=== PATIENT | male | born 1995 | race Caucasian/White ===

== ENCOUNTER 2017-02-01 00:51 | Emergency (ER) | payer BC ==
[~2017-02-01] VITALS: Ht 180.3 cm; Wt 80.3 kg
[2017-02-01 00:58] VITALS: TEMP 37; Ht 180.3 cm; Wt 80.3 kg
[2017-02-01] MEDS ORDERED: ONDANSETRON INJ 2 MG/ML 2 ML VIAL IV STA (00:59)
[2017-02-01] MEDS ORDERED: SODIUM CHLORIDE 0.9% 1000ML 1,000 ML IV STA (00:59)
[2017-02-01] MEDS ORDERED: DIPHTHERIA/TETANUS/PERTUSSIS 0.5 ML SYR/VIAL IM. ONE (01:00)
[2017-02-01] MEDS ORDERED: LIDOCAINE/EPINEPHRINE 1% 20 ML VIAL INFIL ONE (01:00)
[2017-02-01 01:05] VITALS: O2SAT 99
--- NOTE | 2017-02-01 01:08 | EMERGENCY ROOM VISIT NOTE ---
History Report prepared by Sohail: Nina Milligan Under the Supervision of: Dr. Nawaf Lara M.D. First contact with patient: 00:44 Chief Complaint: FALL Stated Complaint: FALL History of Present Illness The patient is a 21 year old white male with no pertinent past me who presents to the ED with a cc of fall beginning shortly prior to arrival. Per EMS, the patient was about 10-14 feet up climbing a balcony, when he fell backwards and hit a car. Per EMS, the patient his his head. Per EMS, the patient does not remember climbing or falling. The patient states that he is not on blood thinners and denies drug use. Positive head pain. Source of History: patient, EMS Onset: shortly prior to arrival Position: other (global) Quality: other (fall ) Associated Symptoms: + headache Review of Systems See HPI for pertinent positives and negatives. A total of ten systems were reviewed and were otherwise negative. Past Medical & Surgical No pertinent past medical history stated. Family History No pertinent family history stated. Social History Alcohol Use: occasionally Drug Use: none Current/Historical Medications Scheduled [Generic Allergymed], 1 TAB PO BID Allergies Coded Allergies: No Known Allergies (Unverified , 02/01/17) Physical Exam Vital Signs Date Time Temp Pulse Resp B/P (MAP) Pulse Ox O2 Delivery O2 Flow Rate FiO2 02/01/17 04:05 110 24 99/60 95 Room Air 02/01/17 01:45 123 18 110/76 99 Room Air 02/01/17 01:05 99 Room Air 02/01/17 01:03 117 02/01/17 00:58 37.0 125 18 139/81 100 Room Air Physical Exam GENERAL: Awake, alert, slurred speech, intoxicated HENT: Normocephalic. 4-5 cm laceration to right parietal area. Trace bleeding. Patient has no pain to the face, jaw, or C-spine. EYES: Normal conjunctiva. Sclera non-icteric. NECK: Supple. No nuchal rigidity. FROM. RESPIRATORY: CTAB, no rhonchi, wheezing, crackles CARDIAC: RRR, no MRG ABDOMEN: Soft, NTND, BS+ MSK: No chest wall TTP, no LE edema. Patient has no pain to shoulder or clavicle. No chest wall or abdominal tenderness. NEURO: Exam limited. PERRL. CN 2-12 intact with exception of mild dysarthria, 5/ 5 upper and lower extremity strength, no dysmetria, positive drift, good finger to nose, no sensory deficits. SKIN: No rash or jaundice noted. Medical Decision & Procedures ER Provider Diagnostic Interpretation: Pelvic X-Ray: Bony contours appear intact. SI joints and sacral ala are intact. Pubic symphysis does not appear widened. No obvious femur fracture noted. Chest X-Ray: Trachea is midline. Costophrenic angles are well demarcated. No deep sulcus present. No air under diaphragm. No pneumothorax or pleural effusion. No cardiomegaly. Mediastinum is not widened. No obvious bony deformities. Radiology results as stated below per my review and statrad. CT HEAD: No evidence of acute intracranial abnormality or skull fracture. Mild paranasal sinus mucosal thickening. No fluid levels. Mastoid are cells are clear. Right parietal scalp swelling, laceration. CT C SPINE: No fracture or malalignment. Laboratory Results 02/01/17 01:00 Red Blood Count 4.94, Mean Corpuscular Volume 88.3, Mean Corpuscular Hemoglobin 30.8, Mean Corpuscular Hemoglobin Concent 34.9, Mean Platelet Volume 9.7 02/01/17 01:00 Test 02/01/17 01:00 02/01/17 02:10 White Blood Count 10.07 K/uL (4.8-10.8) Red Blood Count 4.94 M/uL (4.7-6.1) Hemoglobin 15.2 g/dL (14.0-18.0) Hematocrit 43.6 % (42-52) Mean Corpuscular Volume 88.3 fL (80-100) Mean Corpuscular Hemoglobin 30.8 pg (25-34) Mean Corpuscular Hemoglobin Concent 34.9 g/dl (32-36) Platelet Count 217 K/uL (130-400) Mean Platelet Volume 9.7 fL (7.4-10.4) RDW Standard Deviation 39.4 fL (36.4-46.3) RDW Coefficient of Variation 12.4 % (11.5-14.5) Neutrophils % (Manual) 30.4 % Lymphocytes % (Manual) 25.2 % Variant Lymphocytes % (manual) 33.0 % Monocytes % (Manual) 6.1 % Eosinophils % (Manual) 3.5 % Basophils % (Manual) 0.9 % (0-2) Myelocytes % 0.9 % Neutrophils # (Manual) 3.06 K/uL (1.4-6.5) Total Absolute Neutrophils 3.06 K/uL (1.4-6.5) Lymphocytes # (Manual) 2.54 K/uL (1.2-3.4) Absolute Variant Lymphocytes 3.32 K/uL Total Absolute Lymphocytes 5.86 K/uL (1.2-3.4) Monocytes # (Manual) 0.61 K/uL (0.11-0.59) Eosinophils # (Manual) 0.35 K/uL (0-0.5) Basophils # (Manual) 0.09 K/uL (0-0.2) Myelocytes # 0.09 K/uL (0-0) Red Blood Cell Morphology Unremarkable Prothrombin Time 10.0 SECONDS (9.0-12.0) Prothromb Time International Ratio 0.9 (0.9-1.1) Activated Partial Thromboplast Time 23.5 SECONDS (21.0-31.0) Partial Thromboplastin Ratio 0.9 Anion Gap 11.0 mmol/L (3-11) Est Creatinine Clear Calc Drug Dose 127.2 ml/min Estimated GFR () 127.9 Estimated GFR (Non- 110.4 BUN/Creatinine Ratio 11.5 (10-20) Calcium Level 8.4 mg/dl (8.5-10.1) Total Bilirubin 0.3 mg/dl (0.2-1) Direct Bilirubin < 0.1 mg/dl (0-0.2) Aspartate Amino Transf (AST/SGOT) 15 U/L (15-37) Alanine Aminotransferase (ALT/SGPT) 21 U/L (12-78) Alkaline Phosphatase 50 U/L (45-117) Total Protein 7.7 gm/dl (6.4-8.2) Albumin 4.1 gm/dl (3.4-5.0) Ethyl Alcohol mg/dL 287.0 mg/dl (0-3) Urine Color YELLOW Urine Appearance CLEAR (CLEAR) Urine pH 5.5 (4.5-7.5) Urine Specific Lafferty 1.011 (1.000-1.030) Urine Protein NEG (NEG) Urine Glucose (UA) NEG (NEG) Urine Ketones NEG (NEG) Urine Occult Blood TRACE (NEG) Urine Nitrite NEG (NEG) Urine Bilirubin NEG (NEG) Urine Urobilinogen NEG (NEG) Urine Leukocyte Esterase NEG (NEG) Urine WBC (Auto) 0 /hpf (0-5) Urine RBC (Auto) 0-4 /hpf (0-4) Urine Hyaline Casts (Auto) 0 /lpf (0-5) Urine Epithelial Cells (Auto) 0-5 /lpf (0-5) Urine Bacteria (Auto) NEG (NEG) Laboratory results reviewed by me Medications Administered Medications (Trade) Dose Ordered Sig/Rocio Route Start Time Stop Time Status Last Admin Dose Admin Sodium Chloride 1,000 ml @ 999 mls/hr Q1H1M STAT IV 02/01/17 00:59 02/01/17 01:59 DC 02/01/17 01:41 999 MLS/HR Lidocaine/ Epinephrine (Xylocaine/Epine 1% Inj) 20 ml NOW ONCE INFIL 02/01/17 01:00 02/01/17 01:02 DC 02/01/17 01:38 20 ML Lorazepam (Ativan Inj) 1 mg NOW STAT IV 02/01/17 01:18 02/01/17 01:19 DC 02/01/17 01:23 1 MG Procedure Location: over right parietal area Total length: 2 cm Complexity: simple Verbal consent was obtained after the risks and benefits were explained, including but not limited to bleeding, scarring, infection, pain, and bone/joint /nerve damage. At this time, the risks of the procedure are less than the risks of NOT performing the procedure. A time out was taken and the correct patient and site identified. The skin was prepped with betadine. The target area was anesthetized with 4 ml of 1% lidocaine without epinephrine. Copious irrigation was performed using saline. The skin was re-prepped with betadine and a sterile field set. The wound was explored for foreign bodies and none found. Examination revealed no injury to deep structures such as tendons, bone, or significant blood vessels. Debridement was not performed. The wound edges were approximated using 4-0 simple interrupted nylon sutures. Hemostasis and excellent approximation was achieved. Antibacterial ointment and a sterile dressing applied. Detailed wound care instructions and signs and symptoms of infection reviewed with the patient. No complications and the patient tolerated the procedure well. Location: over right parietal area Total length: 3 cm Complexity: simple Verbal consent was obtained after the risks and benefits were explained, including but not limited to bleeding, scarring, infection, pain, and bone/joint /nerve damage. At this time, the risks of the procedure are less than the risks of NOT performing the procedure. A time out was taken and the correct patient and site identified. The skin was prepped with betadine. The target area was anesthetized with 4 ml of 1% lidocaine without epinephrine. Copious irrigation was performed using saline. The skin was re-prepped with betadine and a sterile field set. The wound was explored for foreign bodies and none found. Examination revealed no injury to deep structures such as tendons, bone, or significant blood vessels. Debridement was not performed. The wound edges were approximated using 3-0 simple interrupted nylon sutures. Hemostasis and excellent approximation was achieved. Antibacterial ointment and a sterile dressing applied. Detailed wound care instructions and signs and symptoms of infection reviewed with the patient. No complications and the patient tolerated the procedure well. ED Course 0100: The patient was evaluated in room B1. A complete history and physical exam was performed. 0420: I reevaluated the patient. Discussed results and discharge instructions: He verbalized understanding and agreement. The patient is ready for discharge. Medical Decision The patient is a 21 year old white male with no pertinent past me who presents to the ED with a cc of fall beginning shortly prior to arrival. Differential diagnosis: Etiologies such as fracture, dislocation, intra-abdominal, pneumothorax, intrathoracic , intracranial, neurologic, as well as other traumatic pathologies were entertained. Patient was seen and evaluated at the bedside. Patient did have a GCS of 15 and was following commands. Patient denied any numbness, tingling, or weakness. Patient has no medical problems and does not take any blood thinning medications. Patient does have a laceration to the right parietal area. Patient trachea was midline without any crepitus. Patient had no other abrasions or injuries or complaints the chest abdomen or bilateral upper or lower extremities. Patient had a fairly good neuro exam although he had some mild drift this may be secondary to intoxication. Patient blood work is fairly unremarkable with the exception of an elevated alcohol. Patient did have CT of the head and C-spine completed. These were negative acute fracture or bleed. Patient did have a laceration was repaired. Patient declined tetanus prophylaxis as he stated he was up-to-date. Patient's chest x-ray and pelvic films were interpreted by me and appear negative acute terms of acute fracture or dislocation. No pneumothorax was identified either. Patient called sober friend who was present at bedside. Called mc's sister who is agreeable to have patient and watch him. Patient given strict f/u, d/c, and return precautions and was d/c'ed to home. Medication Reconcilliation Current Medication List: was personally reviewed by me Blood Pressure Screening Patient's blood pressure: Normal blood pressure Impression Primary Impression: Fall Additional Impressions: Encounter for alcohol cessation counseling Laceration of head Scribe Attestation The scribe's documentation has been prepared under my direction and personally reviewed by me in its entirety. I confirm that the note above accurately reflects all work, treatment, procedures, and medical decision making performed by me. Departure Information Dispostion Home / Self-Care Forms HOME CARE DOCUMENTATION FORM, IMPORTANT VISIT INFORMATION Patient Instructions Alcohol Abuse - [facility], ED Head Injury Closed, ED Laceration All, My [facility] Additional Instructions Please return to the emergency department if you have worsening or recurrent symptoms not amenable to at-home treatment. Please call for a follow-up appointment with her primary care physician. Please take your medications as prescribed. If you have other concerns and/or complaints please feel free to also call your primary care physician's office or return the ED for further evaluation, management, and treatment. You may apply antibiotic ointment to your laceration. You may use gentle soap and water and/or shampoo. Do not soak your wound. You will need your hari removed in 7 days. Please return if you develop fevers or have foul smelling or colored drainage presenting from your wound. You have been examined and treated today on an emergency basis only. This is not a substitute for, or an effort to provide, complete comprehensive medical care. It is impossible to recognize and treat all injuries or illnesses in a single emergency department visit. It is therefore important that you follow up closely with [facility]. Call as soon as possible for an appointment. Thank you for your time and consideration. I look forward to speaking with you again soon. Please don't hesitate to call us if you have any questions. Problem Qualifiers Primary Impression: Fall Encounter type: initial encounter Qualified Codes: W19.XXXA - Unspecified fall, initial encounter Additional Impressions: Laceration of head Encounter type: initial encounter Location of open wound of head: scalp Foreign body presence: without foreign body Qualified Codes: S01.01XA - Laceration without foreign body of scalp, initial encounter
[2017-02-01] MEDS ORDERED: LORAZEPAM 2 MG/ML 1 ML VIAL IV STA (01:18)
[2017-02-01] MEDS ORDERED: LORAZEPAM 2 MG/ML 1 ML VIAL ONE (01:18)
[2017-02-01 01:31] LABS: INR 0.9 (0.9-1.1); PARTIAL THROMBOPLASTIN RATIO 0.9
[2017-02-01 01:47] LABS: HEMATOCRIT 43.6 % (42-52); MEAN CELL VOLUME 88.3 fL (80-100); MEAN CORPUSCULAR HEMOGLOBIN 30.8 pg (25-34); MEAN CORPUSCULAR HGB CONC 34.9 g/dl (32-36); MEAN PLATELET VOLUME 9.7 fL (7.4-10.4); PLATELET COUNT 217 K/uL (130-400); RED BLOOD COUNT 4.94 M/uL (4.7-6.1); WHITE BLOOD COUNT 10.07 K/uL (4.8-10.8)
[2017-02-01 01:49] LABS: ALKALINE PHOSPHATASE 50 U/L (45-117); ALT/SGPT 21 U/L (12-78); BLOOD UREA NITROGEN 11 mg/dl (7-18); BUN/CREATININE RATIO 11.5 (10-20); CALCIUM 8.4 mg/dl (8.5-10.1); CARBON DIOXIDE 24 mmol/L (21-32); CHLORIDE 107 mmol/L (98-107); CREATININE 0.97 mg/dl (0.60-1.40); GLUCOSE 177 mg/dl (70-99)
[2017-02-01 01:55] LABS: POTASSIUM 3.5 mmol/L (3.5-5.1); SODIUM 142 mmol/L (136-145)
[2017-02-01 02:00] LABS: AST/SGOT 15 U/L (15-37)
[2017-02-01] MEDS ORDERED: [UNRECOGNIZED DRUG - REMARK] PO (02:09)
[2017-02-01 02:14] LABS: BASO ABS # 0.09 K/uL (0-0.2); BASOPHIL % 0.9 % (0-2); COMPLETE YES; EOSINOPHIL % 3.5 %; LYMPH ABS # 2.54 K/uL (1.2-3.4); LYMPHOCYTE % 25.2 %; MYELOCYTE % 0.9 %; NEUTROPHILS % 30.4 %; VARIANT LYM ABS # 3.32 K/uL
[2017-02-01 02:27] LABS: URINE APPEARANCE CLEAR (CLEAR); URINE BILIRUBIN NEG (NEG); URINE COLOR YELLOW; URINE EPITHELIAL CELL AUTO 0-5 /lpf (0-5); URINE NITRITE NEG (NEG); URINE PH 5.5 (4.5-7.5); URINE SPECIFIC GRAVITY 1.011 (1.000-1.030); UROBILINOGEN NEG (NEG)
[2017-02-01 02:36] LABS: MANUAL MICROSCOPIC REQUIRED? NO; REVIEW REQ? NO
[2017-02-01 04:05] VITALS: BP 99/60; PULSE 110; O2SAT 95
--- NOTE | 2017-02-01 06:46 | DIAGNOSTIC IMAGING REPORT ---
CHEST ONE VIEW PORTABLE HISTORY: 21 years-old Male EVALUATE FOR TRAUMA/INJURY acute chest injury status post fall COMPARISON: None available TECHNIQUE: Portable upright AP view of the chest FINDINGS: Cardiomediastinal and hilar silhouettes are within normal limits. No pneumothorax, pleural effusion, focal airspace consolidation or overt pulmonary edema. Bones of the chest appear grossly intact without acute fracture identified. IMPRESSION: No acute cardiopulmonary process. No rib fracture or pneumothorax identified. The above report was generated using voice recognition software. It may contain grammatical, syntax or spelling errors. Electronically signed by: Socrates Chase M.D. 02/01/2017 6:45 AM Dictated Date/Time: 02/01/2017 6:43 AM
--- NOTE | 2017-02-01 07:10 | DIAGNOSTIC IMAGING REPORT ---
HEAD CT NONCONTRAST CT DOSE: HISTORY: EVALUATE FOR TRAUMA/INJURY TECHNIQUE: Multiaxial CT images of the head were performed without the use of intravenous contrast. Automated exposure control was utilized for this study. A dose lowering technique was utilized adhering to the principles of ALARA. Comparison: None. Findings: The paranasal sinuses and mastoid air cells are clear. The calvarium and skull base are intact. The ventricles and sulci are within normal limits. There is no mass, hematoma, midline shift, or acute infarct. Right parietal scalp swelling with a laceration. Impression: No acute intracranial abnormality. Right-sided scalp injury. Electronically signed by: Paulie Laws M.D. 02/01/2017 7:09 AM Dictated Date/Time: 02/01/2017 7:08 AM
--- NOTE | 2017-02-01 07:13 | DIAGNOSTIC IMAGING REPORT ---
CT SCAN OF THE CERVICAL SPINE CLINICAL HISTORY: Intoxication. Trauma. Fall. COMPARISON STUDY: No priors. TECHNIQUE: CT scan of the cervical spine is performed from the skull base to the upper thoracic spine. Images are reviewed in the axial, sagittal, and coronal planes. IV contrast was not administered for this examination. A dose lowering technique was utilized adhering to the principles of ALARA. CT DOSE: 1095.08 mGy.cm FINDINGS: Skeletal structures: The skeletal structures are well mineralized. There is no evidence of fracture or subluxation involving the cervical spine. Vertebral body height and alignment are maintained. The odontoid process and lateral masses are intact. The atlantoaxial articulation is preserved. The spinous processes appear intact. Intervertebral discs: The disc spaces are well maintained. Central canal: Widely patent. Soft tissues: The prevertebral and paraspinous soft tissues are within normal limits. Calvarium: The visualized calvarium at the skull base appears intact. Brain parenchyma: Partially visualized brain parenchyma the skull base is within normal limits. Sinuses and mastoids: Mucosal thickening is seen within the left sphenoid sinus. The mastoid air cells are well pneumatized. Lung apices: Clear as visualized. IMPRESSION: There is no evidence of fracture or subluxation involving the cervical spine. Electronically signed by: Kvng Velarde M.D. 02/01/2017 7:11 AM Dictated Date/Time: 02/01/2017 7:10 AM
--- NOTE | 2017-02-01 07:30 | DIAGNOSTIC IMAGING REPORT ---
PELVIS 1 OR 2 VIEW ROUTINE HISTORY: 21 years-old Male s/p fall acute pelvic pain status post fall COMPARISON: None available TECHNIQUE: Single AP view of the pelvis FINDINGS: Probable bone island of the inferior left greater trochanter, 1.1 cm. No acute fracture, dislocation or significant degenerative changes. Soft tissues are unremarkable without opaque foreign body. IMPRESSION: No acute fracture or dislocation. The above report was generated using voice recognition software. It may contain grammatical, syntax or spelling errors. Electronically signed by: Socrates Chase M.D. 02/01/2017 7:28 AM Dictated Date/Time: 02/01/2017 7:27 AM
== END 2017-02-01 04:05 | disposition home or self-care (01) ==
LOC: EDBD 00:51 → C.EDB 00:52
DX: S09.90XA Unspecified injury of head, initial encounter (principal); S01.91XA Laceration without foreign body of unspecified part of head, initial encounter; W19.XXXA Unspecified fall, initial encounter